=== PATIENT | male | born 1960 | race American Indian/Alaskan Native ===

== ENCOUNTER 2017-10-01 10:28 | Outpatient (CLI) | payer OTHER ==
--- NOTE | 2017-10-01 11:18 | XRay Report ---
RIGHT HIP, 2 VIEWS History: Right hip pain. Findings: Moderate to severe osteoarthritic changes are identified at the right hip. There does appear to be lateral subluxation of the right femoral head with respect to the acetabulum but no true dislocation. There appear to be heterotopic calcification surrounding the right hip suggesting previous trauma. No obvious acute fracture. Impression: Advanced degenerative changes. Heterotopic calcifications. Further evaluation with CT or MRI should be considered.
--- NOTE | 2017-10-01 11:19 | XRay Report ---
LUMBOSACRAL SPINE, 3 VIEWS: History: Back pain Findings: The vertebral bodies, disk spaces and posterior elements are intact. No compression deformity or malalignment. The SI joints are symmetric and unremarkable. Impression: Lumbar spine within normal limits.
--- NOTE | 2017-10-01 11:19 | XRay Report ---
CERVICAL SPINE, 3 views: History: Neck pain. Findings: Moderate to severe degenerative disc disease is identified at all levels. Minimal facet arthropathy. There is straightening of the normal lordosis. No evidence for displaced fracture, subluxation or bone lesion. Impression: Advanced multilevel cervical spondylosis.
== END 2017-10-01 10:29 | disposition home or self-care (01) ==
LOC: XRAY 10:28
PROVIDERS: ATTEND Internal Medicine
DX: M16.11 Unilateral primary osteoarthritis, right hip (principal); M47.892 Other spondylosis, cervical region; M50.30 Other cervical disc degeneration, unspecified cervical region; M25.851 Other specified joint disorders, right hip; S73.006A Unspecified dislocation of unspecified hip, initial encounter; S19.9XXA Unspecified injury of neck, initial encounter; M25.819 Other specified joint disorders, unspecified shoulder; F32.9 Major depressive disorder, single episode, unspecified; X58.XXXA Exposure to other specified factors, initial encounter; Y93.89 Activity, other specified; Y92.89 Other specified places as the place of occurrence of the external cause; Y99.8 Other external cause status
CPT/HCPCS: 72040; 72100